=== PATIENT | female | born 1970 | race Hispanic/Latino ===

== ENCOUNTER 2023-12-04 08:00 | Outpatient (RCR) | payer MEDICARE, BC ==
[~2023-12-04 08:00] MED LIST: CALCITRIOL0.5 MCG PO; DOXYCYCLINE HY100 MG PO; EPOGEN10000 UNIT SQ; FUROSEMIDE80 MG PO; HUMALOG100 UNIT/3; HYDRALAZINE HCL50 MG PO; IRBESARTAN300 MG PO; LANTUS 3ML100 UNITS/ SQ; LIPITOR20 MG PO; SENSIPAR30 MG PO; SPIRONOLACTONE25 MG PO; SYNTHROID100 MCG PO; VITAMIN D3125 MCG PO
== END 2023-12-08 12:18 | disposition home or self-care (01) ==
LOC: WCC 08:00
PROVIDERS: ATTEND Internal Medicine Infectious Disease
DX: S81.002A Unspecified open wound, left knee, initial encounter (principal); L03.116 Cellulitis of left lower limb

== ENCOUNTER 2024-01-01 11:17 | Outpatient (RCR) | payer MEDICARE, BC ==
[~2024-01-01 11:17] MED LIST changes: +LIDOCAINE VISC 2% SOLN 15 ML UDC ONE; +LIDOCAINE/PRILOCAINE 2.5-2.5% KIT ONE
== END 2024-01-10 ==
LOC: WCC 11:17
PROVIDERS: ATTEND Internal Medicine Infectious Disease
DX: S81.002A Unspecified open wound, left knee, initial encounter (principal); L03.116 Cellulitis of left lower limb

== ENCOUNTER 2024-01-15 11:22 | Outpatient (RCR) | payer MEDICARE, BC ==
[~2024-01-15 11:22] MED LIST changes: -LIDOCAINE VISC 2% SOLN 15 ML UDC ONE; -LIDOCAINE/PRILOCAINE 2.5-2.5% KIT ONE
== END 2024-02-10 ==
LOC: WCC 11:22
PROVIDERS: ATTEND Internal Medicine Infectious Disease
DX: S81.002A Unspecified open wound, left knee, initial encounter (principal)